=== PATIENT | female | born 1985 | race African-American/Black ===

== ENCOUNTER 2019-01-24 07:08 | Emergency (ER) | payer MEDICAID ==
[~2019-01-24] VITALS: Ht 172.7 cm; Wt 87.0 kg
[~2019-01-24 07:08] MED LIST: ZOFRAN
[2019-01-24] MEDS ORDERED: IBUPROFEN 600MG TABLET PO ONE (08:00)
[2019-01-24 09:51] VITALS: BP 122/69
== END 2019-01-24 09:52 | disposition home or self-care (01) ==
LOC: ER 07:08
DX: S16.1XXA Strain of muscle, fascia and tendon at neck level, initial encounter (principal); M25.561 Pain in right knee; V49.49XA Driver injured in collision with other motor vehicles in traffic accident, initial encounter; Y93.89 Activity, other specified; Y92.410 Unspecified street and highway as the place of occurrence of the external cause; L03.115 Cellulitis of right lower limb; S80.861A Insect bite (nonvenomous), right lower leg, initial encounter; W57.XXXA Bitten or stung by nonvenomous insect and other nonvenomous arthropods, initial encounter; Y92.89 Other specified places as the place of occurrence of the external cause
CPT/HCPCS: 10060; 81025; 99283; Z7610